=== PATIENT | male | born 1945 | race Hispanic/Latino ===

== ENCOUNTER → 2024-05-18 | Outpatient (CLI) | payer BC, OTHER ==
[2024-05-18 10:25] LABS: INR 1.36 (0.85-1.15)
[2024-05-18 10:26] LABS: PARTIAL THROMBOPLASTIN TIME 32.2 SEC (26.3-35.5)
--- NOTE | 2024-05-18 10:30 | NUR ---
U/S GD PARACENTESIS NOT DONE U/S PERFORMED BY Deejay WRIGHT RDMS. IMAGES REVIEWED BY DR Edwin NARANJO. NOT ENOUGH FLUID TO PERFORM PROCEDURE SAFELY. PT AND GRANDDAUGHTER INFORMED OF OUT COME. PT DISCHARGE VIA AMBULATORY. DENIES PAIN. A&O.
--- NOTE | 2024-05-18 11:24 | HMCIMG ---
US ABD LIMITED/ABD WALL REASON: ASCITES. COMPARISON: None TECHNIQUE: Limited abdominal ultrasound study was performed for paracentesis purpose. FINDINGS: Only small amount of ascites fluid is seen. Therefore paracentesis wasn't performed. IMPRESSION: Small ascites.
== END | disposition home or self-care (01) ==
LOC: RAH 09:45
PROVIDERS: ATTEND Internal Medicine Gastroenterology
DX: R18.8 Other ascites (principal); K74.60 Unspecified cirrhosis of liver
CPT/HCPCS: 36415; 76705; 85610; 85730